=== PATIENT | female | born 1960 | race American Indian/Alaskan Native ===

== ENCOUNTER 2016-09-27 18:03 | Emergency (ER) | payer MEDICARE ==
[2016-09-27] MEDS ORDERED: NORCO 5/325 PO ONE (21:25)
--- NOTE | 2016-09-27 21:53 | Emergency Department Report ---
ED Fall HPI - General Chief Complaint: Back Pain/Injury Stated Complaint: SEVERE BACK PAIN Time Seen by Provider: 09/27/16 21:18 Source: patient Mode of arrival: Ambulatory - History of Present Illness Initial Comments: 56-year-old female past medical history asthma, hypertension, thoracic compression fracture 2016 presents with complaint of lower back and mid back pain status post mechanical fall at home today. Patient states she tripped on staircase and fell onto buttocks/lower back. Patient complaining of acute on chronic pain secondary to the fall. Patient awake alert and oriented 3 appears uncomfortable. Patient denies any loss of consciousness no head trauma no lacerations. Denies any chest pain no shortness of breath no nausea no vomiting no abdominal pain. Patient denies any new paresthesias, no bladder or bowel incontinence since fall. Patient states she got up immediately after the fall no prolonged downtime. Patient also requesting refill on narcotics medicine (states she ran out of oxycodone). She states that the fall she experienced today is the same mechanism that resulted in thoracic vetebral fracture about 6 months ago Onset/Timin -: hour(s) Fall From: down stairs (#) (fell at top the staircase, bounced on buttocks down 3 steps) When Fall Occurred: 4-6 hours [employer] Fall Witnessed: no Place Fall Occurred: home Loss of Consciousness: none Prolonged Down Time?: no Symptoms Prior to Fall: none Location: back, buttocks Severity: moderate Severity scale (0 -10): 6 Quality: aching Context: tripped/slipped Associated Symptoms: denies - Related Data Home Medications Medication Instructions Recorded Confirmed Last Taken Ambien 03/21/16 Unknown Hydrochlorothiazide [HCTZ] 03/21/16 Unknown Ventolin HFA 03/21/16 Unknown Previous Rx's Medication Instructions Recorded Last Taken Type Acetaminophen/Codeine [Tylenol #3] 1 tab PO Q8H PRN #12 tablet 04/08/15 Unknown Rx Cyclobenzaprine [Flexeril 10 MG 10 mg PO TID PRN #15 tablet 04/08/15 Unknown Rx TAB] Naproxen [Naprosyn TAB] 500 mg PO BID PRN #20 tablet 09/27/16 Unknown Rx traMADol [Ultram 50 MG tab] 50 mg PO Q6HR PRN #20 tablet 09/27/16 Unknown Rx Allergies Allergy/AdvReac Type Severity Reaction Status Date / Time latex Allergy Unknown Verified 03/21/16 18:28 ED Review of Systems ROS: Stated complaint: SEVERE BACK PAIN Other details as noted in HPI Constitutional: denies: chills, fever Eyes: denies: eye pain, eye discharge, vision change ENT: denies: ear pain, throat pain Respiratory: denies: cough, shortness of breath, wheezing Cardiovascular: denies: chest pain, palpitations Endocrine: no symptoms reported Gastrointestinal: denies: abdominal pain, nausea, diarrhea Genitourinary: denies: urgency, dysuria, discharge Musculoskeletal: denies: back pain, joint swelling, arthralgia Skin: denies: rash, lesions Neurological: denies: headache, weakness, paresthesias Psychiatric: denies: anxiety, depression Hematological/Lymphatic: denies: easy bleeding, easy bruising ED Past Medical Hx - Past Medical History Previous Medical History?: Yes Hx Hypertension: Yes Hx Arthritis: Yes Hx Asthma: Yes Additional medical history: DJD. Fall 03/21/16 - Back Inj March 2016: T11 T12 Compression fx, - Surgical History Past Surgical History?: No - Social History Smoking Status: Former Smoker Substance Use Type: None - Medications Home Medications: Home Medications Medication Instructions Recorded Confirmed Last Taken Type Acetaminophen/Codeine [Tylenol #3] 1 tab PO Q8H PRN #12 tablet 04/08/15 Unknown Rx Cyclobenzaprine [Flexeril 10 MG 10 mg PO TID PRN #15 tablet 04/08/15 Unknown Rx TAB] Ambien 03/21/16 Unknown History Hydrochlorothiazide [HCTZ] 03/21/16 Unknown History Ventolin HFA 03/21/16 Unknown History Naproxen [Naprosyn TAB] 500 mg PO BID PRN #20 tablet 09/27/16 Unknown Rx traMADol [Ultram 50 MG tab] 50 mg PO Q6HR PRN #20 tablet 09/27/16 Unknown Rx ED Physical Exam - General Limitations: No Limitations General appearance: alert, in no apparent distress - Head Head exam: Present: atraumatic, normocephalic - Eye Eye exam: Present: normal appearance, PERRL, EOMI - ENT ENT exam: Present: mucous membranes moist - Neck Neck exam: Present: normal inspection - Respiratory Respiratory exam: Present: normal lung sounds bilaterally. Absent: respiratory distress - Cardiovascular Cardiovascular Exam: Present: regular rate, normal rhythm. Absent: systolic murmur, diastolic murmur, rubs, gallop - GI/Abdominal GI/Abdominal exam: Present: soft, normal bowel sounds - Extremities Exam Extremities exam: Present: normal inspection, full ROM, tenderness - Back Exam Back exam: Present: normal inspection, tenderness, paraspinal tenderness, vertebral tenderness (mild pain and L-spine region on palpation, no ecchymosis, no laceration. Patient disrobed for exam) - Expanded Back Exam Expanded Back exam: Present: normal rectal tone - Neurological Exam Neurological exam: Present: alert, oriented X3, CN II-XII intact, normal gait - Psychiatric Psychiatric exam: Present: normal affect, normal mood - Skin Skin exam: Present: warm, dry, intact, normal color. Absent: rash ED Course Vital Signs 09/27/16 18:09 Temperature 98.3 F Pulse Rate 110 H Respiratory 16 Rate Blood Pressure 154/111 O2 Sat by Pulse 100 Oximetry ED Medical Decision Making - Medical Decision Making A/P: Mechanical fall, lower back pain 1- case discussed with Dr. Finnegan 2- CT Thoracic/L-Spine shows no acute fracture or deformity, chronic degenerative changes and chronic fracture T-spine T12 3- naproxen and tramadol when necessary for pain 4- I referred patient to primary care and orthopedics 5- patient has good rectal tone, ambulating without any assistance, reports no new paresthesias. I advised patient to return to the ED if she experiences severe back pain with associated worsening paresthesias sensation of bladder fullness with overflow and/or rectal incontinence Critical care attestation.: If time is entered above; I have spent that time in minutes in the direct care of this critically ill patient, excluding procedure time. ED Disposition Clinical Impression: Fall (on) (from) other stairs and steps, initial encounter Chronic lower back pain Qualifiers: Back pain laterality: bilateral Sciatica presence: with sciatica Sciatica laterality: sciatica of right side Qualified Code(s): M54.41 - Lumbago with sciatica, right side; G89.29 - Other chronic pain Disposition: DISCHARGED TO HOME OR SELFCARE Is pt being admited?: No Does the pt Need Aspirin: No Condition: Stable Instructions: Low Back Strain (ED), Acute Low Back Pain (ED), Chronic Back Pain (ED), Back Pain (ED) Prescriptions: Naproxen [Naprosyn TAB] 500 mg PO BID PRN #20 tablet PRN Reason: Pain traMADol [Ultram 50 MG tab] 50 mg PO Q6HR PRN #20 tablet PRN Reason: Pain , Severe (7-10) Referrals: STACIE NUNO [Other] - 3-5 Days SANTHOSH GOLDSTEIN MD [Staff Physician] - 3-5 Days ROCHELLE BARBER MD [Staff Physician] - 3-5 Days Forms: Work/School Release Form(ED) Time of Disposition: 22:43
--- NOTE | 2016-09-27 22:27 | Cat Scan Report ---
FINAL REPORT EXAM: CT THORACIC SPINE WO CON HISTORY: fall c/o worse back pain TECHNIQUE: Spiral CT scanning of the thoracic spine with multiplanar reformations. PRIORS: 21 March 2016. FINDINGS: Cleavage fracture again noted in T12 vertebral body, with some interval loss of central height approximating 25-50% and also mild separation of fracture components in the sagittal plane. Approximately 2 mm retropulsion, with slight indentation of ventral thecal sac, but no significant central spinal stenosis. Mild levoconvex curvature may be positional versus soft tissue spasm. Multilevel degenerative disc disease and spondylosis. Small disc bulge again noted T12-L1 level about the same. No acute compression deformity or gross malalignment of thoracic vertebral bodies. No other acute fracture identified. No acute, osseous central spinal canal encroachment. Paraspinal soft tissues grossly unremarkable. IMPRESSION: 1. No acute compression deformity or apparent fracture in the thoracic spine. 2. 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 3. Degenerative spondylosis.
--- NOTE | 2016-09-27 22:32 | Cat Scan Report ---
FINAL REPORT EXAM: CT LUMBAR SPINE WO CON HISTORY: fall c/o worsening back pain TECHNIQUE: Spiral CT scanning of the lumbar spine with multiplanar reformations. PRIORS: 21 March 2016. FINDINGS: Cleavage fracture in the T12 vertebral body level as reported on CT thoracic spine of same date. No acute compression deformity or gross malalignment of lumbar vertebral bodies. No other acute fracture identified. No acute, osseous central spinal canal encroachment. Paraspinal soft tissues grossly unremarkable. IMPRESSION: 1. No acute compression deformity or apparent fracture in the lumbar spine.
[2016-09-27 22:56] VITALS: BP 157/104
== END 2016-09-27 22:44 | disposition home or self-care (01) ==
LOC: ED 18:03
DX: M54.41 Lumbago with sciatica, right side (principal); G89.29 Other chronic pain; I10 Essential (primary) hypertension; M19.90 Unspecified osteoarthritis, unspecified site; J45.909 Unspecified asthma, uncomplicated; Z87.891 Personal history of nicotine dependence; Z91.040 Latex allergy status; W10.9XXA Fall (on) (from) unspecified stairs and steps, initial encounter; Y93.9 Activity, unspecified; Y99.9 Unspecified external cause status; Y92.009 Unspecified place in unspecified non-institutional (private) residence as the place of occurrence of the external cause
CPT/HCPCS: 72128; 72131; 99283

== ENCOUNTER 2018-11-20 19:16 | Emergency (ER) | payer MEDICARE ==
--- NOTE | 2018-11-20 20:12 | Emergency Department Report ---
Blank Doc - Documentation Documentation: This is a 58 y.o. female that presents to ER with nausea, SOB, and numbness to RUE x 3 days. Patient called PCP and have appointment next Monday. Pain in right shoulder with movement and numbness and tingling in fingers. Taking ibuprofen with no improvement of symptoms. Ordered xray of right shoulder. Fast track for further evaluation.
[2018-11-20] MEDS ORDERED: TORADOL IM ONE (20:51)
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
--- NOTE | 2018-11-20 21:46 | XRay Report ---
PROCEDURE: XR SHOULDER 2+V RT TECHNIQUE: Right shoulder radiographs, three views. HISTORY: ac joint pain COMPARISONS: None . FINDINGS: Fracture (s) and/or Dislocation(s): None . Joint space(s): Normal . Soft tissues: Normal . Bone mineralization: Normal . Foreign bodies: None . IMPRESSION: Normal Examination . This document is electronically signed by Yusef Harman MD., November 20 2018 09:43:27 PM ET
[2018-11-20 22:31] VITALS: BP 174/97
== END 2018-11-20 22:32 | disposition home or self-care (01) ==
LOC: ED 19:16
DX: M25.511 Pain in right shoulder (principal); I10 Essential (primary) hypertension; M19.90 Unspecified osteoarthritis, unspecified site; J45.909 Unspecified asthma, uncomplicated; Z88.6 Allergy status to analgesic agent; Z91.040 Latex allergy status
CPT/HCPCS: 73030; 96372; 99283; J1885

== ENCOUNTER 2021-11-05 18:12 | Emergency (ER) | payer SELFPAY ==
[2021-11-05 18:29] VITALS: BP 159/84
== END 2021-11-05 23:03 | disposition left against medical advice (07) ==
LOC: ED 18:12
DX: M25.511 Pain in right shoulder (principal); Z53.21 Procedure and treatment not carried out due to patient leaving prior to being seen by health care provider